=== PATIENT | female | born 1995 | race Caucasian/White ===

== ENCOUNTER 2020-09-18 13:59 | Emergency (ER) | payer OTHER, SELFPAY ==
[~2020-09-18] VITALS: Ht 160 cm; Wt 74.4 kg
[~2020-09-18 13:59] MED LIST: FLUOXETINE10 M2 PO; PAXIL20 MG PO; ZITHROMAX1 GM/Packe PO
[2020-09-18 14:02] VITALS: Ht 160 cm; Wt 74.4 kg
[2020-09-18 16:58] LABS: BASOPHIL % 0.1 % (0-2); PLATELET COUNT 201 x10^3mcL (130-400)
[2020-09-18 17:11] LABS: CALCIUM 8.6 mg/dL (8.5-10.1); CARBON DIOXIDE 23.3 mmol/L (21-32); CHLORIDE SERUM 105 mmol/L (98-107); CREATININE SERUM 0.9 mg/dL (0.6-1.0); GFR1 > 60 mL/min; GLUCOSE SERUM 125 mg/dL (74-106); POTASSIUM SERUM 3.3 mmol/L (3.5-5.1); SODIUM SERUM 141 mmol/L (136-145)
[2020-09-18 17:15] LABS: ALBUMIN 3.8 g/dL (3.4-5.0); ALKALINE PHOSPHATASE 77 U/L (46-116); ALT/SGPT 26 U/L (14-59); AST/SGOT 16 U/L (15-37); C REACTIVE PROTEIN 6.2 mg/dL (<=0.9); LACTIC DEHYDROGENASE (LDH) 247 U/L (100-190); TOTAL PROTEIN, SERUM 7.9 g/dL (6.4-8.2)
[2020-09-18 17:35] LABS: RED CELL DISTRIBUTION WIDTH 14.7 % (11.5-14.5)
[2020-09-18 17:54] LABS: UA SPECIFIC GRAVITY <=1.005 (1.005-1.035); microscopic required? YES; urine erythrocyte 2+ (NEGATIVE)
[2020-09-18 17:56] LABS: BILIRUBIN TOTAL 0.3 mg/dL (0.20-1.00)
[2020-09-18 23:50] VITALS: BP 107/69
== END 2020-09-18 23:50 | disposition home or self-care (01) ==
LOC: ED 13:59
PROVIDERS: Emergency Medicine
DX: R06.00 Dyspnea, unspecified (principal); R06.4 Hyperventilation; R56.9 Unspecified convulsions; Z20.828 Contact with and (suspected) exposure to other viral communicable diseases
CPT/HCPCS: 36600; 82962; 83880; 85378; 87804; J2060; J3490; J3535; U0003